=== PATIENT | male | born 1970 | race Caucasian/White ===

== ENCOUNTER → 2023-05-12 06:29 | Day surgery (SDC) | payer OTHER, SELFPAY | LOC: GI 06:29 | PROVIDERS: ATTENDING PHYSICIAN Internal Medicine Gastroenterology | DX: Z12.11 Encounter for screening for malignant neoplasm of colon (principal); Z86.010 Personal history of colon polyps; K64.8 Other hemorrhoids; K57.30 Diverticulosis of large intestine without perforation or abscess without bleeding; D12.8 Benign neoplasm of rectum | CPT/HCPCS: 45385; 88305 ==

== ENCOUNTER → 2024-05-01 12:04 | Outpatient (REF) | payer BC, SELFPAY | LOC: HWRAD 12:04 | PROVIDERS: ATTENDING PHYSICIAN Family Medicine | DX: M25.511 Pain in right shoulder (principal) | CPT/HCPCS: 73030 ==

== ENCOUNTER → 2024-05-27 07:53 | Outpatient (REF) | payer BC, SELFPAY | LOC: MRI 3T 07:53 | PROVIDERS: ATTENDING PHYSICIAN Family Medicine | DX: M25.511 Pain in right shoulder (principal) | CPT/HCPCS: 73221 ==

== ENCOUNTER 2024-06-13 06:01 | Day surgery (SDC) | payer BC, SELFPAY ==
[2024-06-13] MEDS: CELEBREX 200 MG PO (06:27)
[2024-06-13] MEDS: TYLENOL 1000 MG PO (06:27)
[2024-06-13] MEDS: NORMOSOL-R/PLASMALYTE-A 1000 IV (06:44)
[2024-06-13] MEDS: DILAUDID 0.5 MG IV (09:08)
== END 2024-06-13 10:55 | disposition home or self-care (01) ==
LOC: SDS 06:01
PROVIDERS: ATTENDING PHYSICIAN Orthopaedic Surgery Hand Surgery; FAMILY PHYSICIAN Family Medicine
DX: M75.121 Complete rotator cuff tear or rupture of right shoulder, not specified as traumatic (principal); M75.41 Impingement syndrome of right shoulder
CPT/HCPCS: 29827; 36415; 93005; C1713